=== PATIENT | female | born 1955 | race Caucasian/White ===

== ENCOUNTER 2016-08-19 13:41 | Inpatient (IN) | payer MEDICARE, OTHER ==
--- NOTE | ~2016-08-19 | DS ---
Discharge Summary [id number] [place]. [address] NAME: BROOKE NEUMANN : 51 STATUS : DIS IN PAT#: [id number] AGE: 60 ADM/REG DATE : 08/19/16 MR#: [id number] REPORT SERV DATE: 08/31/16 DICTATED BY: AILYN SILVA DATE: 08/30/16 REPORT STATUS : Draft TRANSCRIBED BY: FANI DATE: 08/30/16 Data Collection from hospitalization DISCHARGE DIAGNOSES: 1. Acute coronary syndrome, status post drug-eluting stent to the right coronary artery (proximal/mid/distal). 2. Type 2 diabetes. 3. Hypertension. 4. Dyslipidemia. 5. Chronic pain syndrome. 6. Gastroesophageal reflux disease. 7. Tobacco abuse. 8. Gastric polyps. CONSULTATIONS: None. PROCEDURES PERFORMED: 1. Cardiac catheterization and percutaneous coronary intervention on 08/22/2016. 2. CTA of the chest on 08/19/2016. MEDICATIONS: Tylenol 500-1000 mg twice a day as needed, Ventolin two puffs via inhaler three times a day as needed, aspirin 81 mg every morning, Lipitor 40 mg at bedtime, Plavix 75 mg every morning, Imdur 30 mg twice a day, Lopressor 12.5 mg twice a day, Habitrol one patch topically daily, and nitroglycerin lingual spray one to two sprays as needed for chest pain. She was instructed not to continue Zestoretic. CONDITION AT DISCHARGE: Stable. DISPOSITION: The patient was discharged home on a low-sodium, low-cholesterol, cardiac diet with activities as instructed. She would follow up with Dr. Jesús Escobar on 09/21/2016. HOSPITAL COURSE: This is a 60-year-old female who has known coronary heart disease and is status post extensive stenting of the right coronary artery and subsequent in-stent restenosis and cutting balloon angioplasty for acute stent thrombosis. The patient has had several weeks of severe substernal chest pain. She had undergone percutaneous coronary intervention to the right coronary artery several years ago. She later suffered in-stent restenosis and stent thrombosis of the right coronary artery stents in the year 2013. She has been treated with balloon angioplasty and cutting balloon angioplasty at that time. She was seen by Dr. Escobar on 08/17/2016. Apparently, she has had several weeks of severe chest pain. She had a stress test performed in April 2016, but apparently had no chest pain with exercise on the treadmill. Her stress EKG was normal. However, she did have an inferior defect noted, which was felt to be suggestive of ischemia. The study was limited by artifact. The patient originally elected not to pursue an invasive workup. She was treated medically, but apparently had worsening chest pain, which brought her back to Dr. Escobar's office on the of this month. The patient was going to undergo a cardiac catheterization the following Monday, however, she reports that her chest pain became quite severe at this time and she presented to the emergency room for further evaluation. The patient was having ongoing 5/10 chest pain. She said that the pain had been present for at Discharge [address] [id number] NAME: BROOKE NEUMANN : 51 STATUS : DIS IN PAT#: [id number] AGE: 60 ADM/REG DATE : 08/19/16 MR#: [id number] REPORT SERV DATE: 08/31/16 DICTATED BY: AILYN SILVA DATE: 08/30/16 REPORT STATUS : Draft TRANSCRIBED BY: FANI DATE: 08/30/16 least 12 if not 24 hours. She described it as a sharp stabbing sensation in the mid chest. She also described a "flipping" sensation associated with her chest pain. The pain was relieved somewhat with morphine. She was admitted to the hospital for further evaluation and treatment. Upon admission, CT scan of the chest, pulmonary embolism protocol was performed and it was negative for pulmonary embolism. No other acute thoracic process was reported. The patient was started on a heparin drip. Low-dose metoprolol was also started. She apparently was not taking a beta-jackelyn due to symptomatic hypotension. Metoprolol was going to be started. She would be given nitroglycerin paste for her chest pain. She did have considerable wheezing. There was some concern that her chest pain may be in part related to chronic obstructive pulmonary disease exacerbation, although she does not carry a diagnosis of chronic obstructive pulmonary disease. She was started on albuterol and Atrovent nebulizers. Other home medications including aspirin and Plavix were continued. The patient was strongly encouraged to stop smoking. The following day, the patient reports that her chest pain had resolved. Myocardial infarction had been ruled out. She did have leukocytosis and white count was 16.7. She denied any subjective fever or night sweats. Aspirin, heparin, metoprolol, and nitro paste were continued. Plans were going to be made for the patient to undergo cardiac catheterization in a couple of days. On 08/21/2016, she did complain of some neck pain that had more or less been continuous since admission. She did have diffuse wheezing, nebulizers were given. Nitro paste had been held for hypotension. Troponin I was less than 0.02. On 08/22/2016, she was taken to the [facility] where she underwent the above-mentioned procedure by Dr. Jesús Escobar. She tolerated this well, and there were no complications. Discharge instructions were given. Due to her improved and stable condition, she was discharged home with the above-stated instructions. Information collected by: Tammy Ortega I submit the above information as my discharge summary. TG/MODL Ailyn Silva MD / [id number] CC: MD SHOSHANA Lombardi VICKY L
--- NOTE | ~2016-08-19 | HP ---
History And Physical [id number] [facility] [place]. [address] NAME: BROOKE MORATAYA : 51 STATUS : ADM Citlali PAT#: [id number] AGE: 60 ADM/REG DATE : 08/19/16 MR#: [id number] REPORT SERV DATE: 08/20/16 DICTATED BY: AILYN SORIA DATE: 08/19/16 REPORT STATUS : Draft TRANSCRIBED BY: MODL DATE: 08/19/16 DATE OF ADMISSION: 08/19/2016 CARDIOLOGY ADMISSION HISTORY AND PHYSICAL IDENTIFYING DATA: The patient is a 60-year-old woman with known coronary heart disease status post extensive stenting of the right coronary artery and subsequent in-stent restenosis and cutting balloon angioplasty for acute stent thrombosis. CHIEF COMPLAINT: Several weeks of severe substernal chest pain. HISTORY OF PRESENT ILLNESS: Ms Morataya is a 60-year-old woman who is a patient of Dr. Escobar. The patient has a history of coronary artery disease with percutaneous coronary intervention to the right coronary artery several years ago. The patient later suffered in- stent restenosis and stent thrombosis of her right coronary artery stents in the year 2013. She was treated with balloon angioplasty and cutting balloon angioplasty at that time. The patient was last seen by Dr. Escobar on 08/17/2016. The patient apparently had been having several weeks of severe chest pain. A stress test was performed in April 2016. Interestingly, the patient apparently had no chest pain with exercise on the treadmill. Her stress EKG was normal, however, the patient did have an inferior defect noted, which was felt to be suggestive of ischemia. However, the study was limited by artifact. The patient originally elected not to pursue an invasive workup. She has been treated medically, but apparently had worsening chest pain that brought her back to Dr. Escobar's office on the first of this month. The patient was to have cardiac catheterization performed Monday. However, the patient reports that her chest pain became quite severe yesterday, and she presented to the emergency room today for further evaluation. At this time, the patient is having ongoing 5/10 chest pain. She reports that her chest pain has been present for at least 12 if not 24 hours. She describes the pain as a sharp "stabbing" sensation to the mid chest. It is not clearly associated with dyspnea or orthopnea. The patient also describes a "flipping" sensation associated with her chest pain. The pain has been relieved somewhat with morphine. The patient appears comfortable on my initial examination, and is in no acute distress. She is watching television. PAST MEDICAL HISTORY: 1. Coronary artery disease status post PCI as noted above. 2. Hypertension. 3. Dyslipidemia. 4. Chronic pain syndrome. 5. Type 2 diabetes. 6. Gastroesophageal reflux disease. 7. Tobacco abuse. 8. Gastric polyps. PAST SURGICAL HISTORY: Significant for percutaneous coronary intervention and polypectomy, otherwise noncontributory. History And Physical [address] [address] NAME: BROOKE MORATAYA : 51 STATUS : ADM Citlali PAT#: [id number] AGE: 60 ADM/REG DATE : 08/19/16 MR#: [id number] REPORT SERV DATE: 08/20/16 DICTATED BY: AILYN SORIA DATE: 08/19/16 REPORT STATUS : Draft TRANSCRIBED BY: FANI DATE: 08/19/16 FAMILY HISTORY: Negative for early coronary heart disease in the patient's first-degree relatives though her maternal grandmother suffered myocardial infarction at age 50. There is no family history of sudden cardiac . SOCIAL HISTORY: The patient has a long history of tobacco abuse. She continues to smoke about one quarter of pack to half a pack a day of cigarettes. She denies alcohol or drug use. ALLERGIES: THE PATIENT HAS AN EXTENSIVE LIST OF MEDICATION ALLERGIES, WHICH INCLUDE THE FOLLOWIN. PHENOTHIAZINE. 2. PENICILLIN. 3. SULFA DRUGS. 4. ESTROGENS. 5. PROGESTINS. 6. IODINE CONTRAST. 7. ESTROGEN. 8. CODEINE. 9. IBUPROFEN. 10.CLINDAMYCIN. 11.SULFAMETHOXAZOLE. 12.NITROFURANTOIN. 13.PHENERGAN. 14.LEVOFLOXACIN. 15.LATEX. HOME MEDICATIONS: 1. Acetaminophen 500 to 1000 mg p.o. twice daily as needed for pain. 2. Albuterol MDI 2 puffs 3 times daily as needed. 3. Aspirin 81 mg daily. 4. Plavix 75 mg daily. 5. Isosorbide mononitrate 30 mg p.o. twice daily. 6. Lisinopril/hydrochlorothiazide 20/25 mg daily. 7. Sublingual nitroglycerin spray as needed. REVIEW OF SYSTEMS: A complete 12-system review was performed. This is noncontributory except for the pertinent positives and negatives noted in the history of present illness above. PHYSICAL EXAMINATION: VITAL SIGNS: Temperature is 97.9 degrees Fahrenheit, blood pressure is 113/74 mmHg, heart rate is 82 beats per minute and regular, respirations 13, oxygen saturation is 95% on room air. GENERAL: Constitutional: The patient is a well-nourished, well-developed older white woman who is in no acute distress, though she continues to complain of 5/10 chest pain. EYES: PERRL, EOMI, clear conjunctiva. History And Physical [address] [address] NAME: BROOKE MORATAYA : 51 STATUS : ADM Citlali PAT#: [id number] AGE: 60 ADM/REG DATE : 08/19/16 MR#: [id number] REPORT SERV DATE: 08/20/16 DICTATED BY: AILYN SORIA DATE: 08/19/16 REPORT STATUS : Draft TRANSCRIBED BY: FANI DATE: 08/19/16 HEAD/MNT: NCAT with moist mucous membranes and grossly normal hard and soft palate. NECK: Supple with no obvious thyromegaly or lymphadenopathy CARDIOVASCULAR: There is a regular rhythm with a normal S1 and a physiologically split second heart sound. No significant murmurs, rubs, or gallops are noted. The jugular venous pressure is normal. PULMONARY: There is diffuse expiratory wheezing heard bilaterally with prolonged expiratory phase and globally decreased air movement. There is no dullness to percussion. ABDOMINAL: Soft, non-tender, non-distended with no hepatosplenomegaly noted. EXTREMITIES: No clubbing, cyanosis or edema. MUSCULOSKELETAL: Grossly normal strength and range of motion in all extremities INTEGUMENTARY: Skin appears intact with no bruises, wounds or active lesions noted NEURO/PSYC: Alert and oriented x3, with no dysarthria, facial droop or lateralizing weakness noted. 12-lead EKG: The 12-lead ECG shows normal sinus rhythm with very subtle nonspecific ST/T- wave abnormalities and nonsignificant inferior T-waves. The ECG is unchanged from a previous tracing from February 2016. Chest x-ray: The patient's chest x-ray shows no acute cardiopulmonary process. CT scan of the chest, pulmonary embolism protocol: This is negative for pulmonary embolism with no other acute thoracic process reported. B-type natriuretic peptide: This is 6.9. Chemistry profile shows a sodium of 140, potassium 4.5, chloride is 106, CO2 is 22, BUN is 32, creatinine is 1.44, glucose is 91, magnesium 2.2. Troponin I is less than 0.02. White blood cell count is 9.6, hemoglobin 13.8, hematocrit 39, platelets 604. INR is 1.0. PTT is 34. ASSESSMENT AND PLAN: 1. Chest pain syndrome: The patient's chest pain is somewhat atypical: She apparently had no exacerbation of her chest pain during her fairly recent treadmill stress test. In addition, the patient has had almost 12 hours of severe chest pain with a normal EKG and no significant elevation of her troponin I. The patient does have a history of chronic pain syndrome and GI issues of uncertain etiology. At this time, I feel the risks of urgent cardiac catheterization outweighed the benefits, particularly given the patient's elevated serum creatinine and recent contrast exposure from her CT pulmonary embolism protocol. The patient will be admitted to the Clinical Decision Unit. She will be started on a heparin drip. I will start the patient on a low-dose of metoprolol. She apparently is not taking a beta-jackelyn due to symptomatic hypotension. We will start metoprolol tartrate 12.5 mg twice daily if tolerated. The patient will be given nitroglycerin paste for her chest pain, will use morphine as needed. The patient has considerable wheezing, and I am concerned that her chest pain may be in part due to a chronic obstructive pulmonary disease exacerbation, though the patient does not carry a diagnosis of chronic obstructive pulmonary disease. She was History And Physical [address] [address] NAME: BROOKE MORATAYA : 51 STATUS : ADM Citlali PAT#: [id number] AGE: 60 ADM/REG DATE : 08/19/16 MR#: [id number] REPORT SERV DATE: 08/20/16 DICTATED BY: AILYN SORIA DATE: 08/19/16 REPORT STATUS : Draft TRANSCRIBED BY: MODL DATE: 08/19/16 started on albuterol and Atrovent nebulizers. We will continue other home medications including aspirin and Plavix. We will consider coronary angiography on Monday depending on the patient's clinical course. 2. Tobacco abuse: The patient will be strongly counseled to stop smoking. JOSE/FANI Ailyn Soria MD / [id number] CC: Amanda Garrison, MSN, RADAR SCIENTIST-BC MICHAELLE ANNA
[~2016-08-19 13:41] MED LIST: ASAB PO; ASAEC PO; CEFT5 PO; CIPRODEX OT; COREG3 PO; CRESTOR20 MG PO; CRESTOR40 MG PO; CRESTOR5 MG PO; DIPHENCR TOP; EFFIENT10 PO; FISH-EPA1000 MG PO; HALF81 PO; HCTZ25B PO; HYDROCHLOROT25 MG PO; IMDUR30 PO; IMDUR60 PO; LEVAQUIN750 MG PO; LIPITOR20 PO; LIPITOR80 MG PO; MULTIPLE VIT PO; NEUR600 PO; NITROSPRAY SL; NORCO1 TA1 PO; NORCO1 TA2 PO; PLAVIX PO; PRIN10 PO; PRIN20 PO; TOPXL100 PO; TRILIPIX135 MG PO; VENTOLIN HFA INH; X25 PO; ZANAFLEX 4 MG TA4 MG PO; ZESTORETIC1 TA1 PO; ZESTRIL30 MG PO
[2016-08-19 14:10] LABS: BASOPHILS 0.7 %; BASOPHILS ABSOLUTE 0.07 10/3/uL (0.0-0.16); EOSINOPHILS 1.8 %; EOSINOPHILS ABSOLUTE 0.17 10/3/uL (0.0-0.53); ER CBC TAT 0 Hrs 08 MinsNP; HEMATOCRIT 38.9 % (36.0-48.0); HEMOGLOBIN 13.8 g/dL (12.0-16.0); IMMATURE GRANULOCYTES 0.2 %; IMMATURE GRANULOCYTES ABSOLUTE 0.02 10/3/uL (0.0-0.11); LYMPHOCYTES 39.4 %; LYMPHOCYTES ABSOLUTE 3.78 10/3/uL (0.67-4.30); MANUAL DIFF NO %; MEAN CORPUS HGB CONC 35.5 g/dL (32.0-36.0); MEAN CORPUSCULAR HEMOGLOB 33.1 pg (26.0-34.0); MEAN CORPUSCULAR VOLUME 93.3 fL (80-100); MONOCYTES 7.7 %; MONOCYTES ABSOLUTE 0.74 10/3/uL (0.21-1.20); NEUTROPHILS 50.2 %; NEUTROPHILS ABSOLUTE 4.82 10/3/uL (2.02-8.40); PLATELET COUNT 604 10/3/uL (150-400); RBC DISTRIBUTION WIDTH 13.4 % (12.0-16.0); RED CELL COUNT 4.17 10/6/uL (4.0-5.6); WHITE BLOOD CELLS 9.6 10/3/uL (4.5-10.5)
[2016-08-19 14:24] LABS: CALCIUM, SERUM 9.1 MG/DL (8.5-10.4); CHEST PAIN PROFILE TAT 0 Hrs 22 Mins; CHLORIDE, SERUM 106 MMOL/L (96-112); CO2 (CARBON DIOXIDE) 22 MMOL/L (24-34); CREATININE 1.44 MG/DL (0.55-1.02); GFR AFRICAN AMERICAN 45 ML/MIN (>=60); GFR NON AFRICAN AMERICAN 39 ML/MIN (>=60); GLUCOSE, SERUM 91 MG/DL (60-99); POTASSIUM, SERUM 4.5 MMOL/L (3.5-5.3); SODIUM, SERUM 140 MMOL/L (135-148); TROPONIN I <0.02 NG/ML (<0.05)
[2016-08-19 14:25] LABS: BUN (BLOOD UREA NITROGEN) 32 MG/DL (6-23)
[2016-08-19 14:32] LABS: PARTIAL THROMBO TIME 33.7 SEC (22.5-37.2); PROTIME (NOT ORD) 13.5 SEC (12.0-14.5)
[2016-08-19] MEDS ORDERED: VENTOLIN HFA INH (19:26)
[2016-08-19] MEDS ORDERED: NITROLINGUAL SPRAY PO (19:26)
[2016-08-19] MEDS ORDERED: ZESTORETIC1 TA1 PO (19:27)
[2016-08-19] MEDS ORDERED: PLAVIX PO (19:27)
[2016-08-19] MEDS ORDERED: IMDUR30 PO (19:27)
[2016-08-19] MEDS ORDERED: ASAB PO (19:28)
[2016-08-19] MEDS ORDERED: ACET500CAP PO (19:29)
[2016-08-19 23:22] LABS: TROPONIN I <0.02 NG/ML (<0.05)
[2016-08-20 04:18] LABS: BASOPHILS 0.3 %; BASOPHILS ABSOLUTE 0.05 10/3/uL (0.0-0.16); EOSINOPHILS 2.7 %; EOSINOPHILS ABSOLUTE 0.45 10/3/uL (0.0-0.53); HEMATOCRIT 37.9 % (36.0-48.0); HEMOGLOBIN 12.9 g/dL (12.0-16.0); IMMATURE GRANULOCYTES 0.3 %; IMMATURE GRANULOCYTES ABSOLUTE 0.05 10/3/uL (0.0-0.11); LYMPHOCYTES 9.7 %; LYMPHOCYTES ABSOLUTE 1.62 10/3/uL (0.67-4.30); MEAN CORPUSCULAR HEMOGLOB 32.3 pg (26.0-34.0); MONOCYTES 6.2 %; MONOCYTES ABSOLUTE 1.04 10/3/uL (0.21-1.20); NEUTROPHILS 80.8 %; NEUTROPHILS ABSOLUTE 13.52 10/3/uL (2.02-8.40); PLATELET COUNT 581 10/3/uL (150-400); RBC DISTRIBUTION WIDTH 13.5 % (12.0-16.0); RED CELL COUNT 3.99 10/6/uL (4.0-5.6)
[2016-08-20 04:20] LABS: MANUAL DIFF NO %; WHITE BLOOD CELLS 16.7 10/3/uL (4.5-10.5)
[2016-08-20 04:35] LABS: BUN (BLOOD UREA NITROGEN) 35 MG/DL (6-23); CALCIUM, SERUM 8.4 MG/DL (8.5-10.4); CHLORIDE, SERUM 108 MMOL/L (96-112); CO2 (CARBON DIOXIDE) 25 MMOL/L (24-34); CREATININE 1.39 MG/DL (0.55-1.02); GFR AFRICAN AMERICAN 47 ML/MIN (>=60); GFR NON AFRICAN AMERICAN 41 ML/MIN (>=60); POTASSIUM, SERUM 4.3 MMOL/L (3.5-5.3); SODIUM, SERUM 141 MMOL/L (135-148); TROPONIN I <0.02 NG/ML (<0.05)
[2016-08-20 04:36] LABS: GLUCOSE, SERUM 116 MG/DL (60-99)
[2016-08-20 04:39] LABS: CK-MB 1.5 NG/ML; CPK 93 U/L (0-200)
[2016-08-20 15:34] LABS: ASCORBIC ACID (UR NOT ORDER) NEG (NEG); BILIRUBIN, URINE NEGATIVE (NEG); KETONE, URINE NEGATIVE (NEG); LEUKOCYTE ESTERASE(NOT OR TRACE (NEG); WBC (NOT ORDERED) (RFLEX) 3 (0-5)
[2016-08-21 00:41] LABS: HEMOGLOBIN 11.4 g/dL (12.0-16.0); MEAN CORPUS HGB CONC 34.2 g/dL (32.0-36.0); MEAN CORPUSCULAR HEMOGLOB 32.6 pg (26.0-34.0); MEAN CORPUSCULAR VOLUME 95.1 fL (80-100); MEAN PLATELET VOLUME 8.8 fL (9.2-13.0); PLATELET COUNT 502 10/3/uL (150-400); RBC DISTRIBUTION WIDTH 13.2 % (12.0-16.0); WHITE BLOOD CELLS 12.5 10/3/uL (4.5-10.5)
[2016-08-21 00:42] LABS: HEMATOCRIT 33.3 % (36.0-48.0); MANUAL DIFF YES %
[2016-08-21 00:53] LABS: CALCIUM, SERUM 8.4 MG/DL (8.5-10.4); CHLORIDE, SERUM 105 MMOL/L (96-112); CO2 (CARBON DIOXIDE) 21 MMOL/L (24-34); CREATININE 1.53 MG/DL (0.55-1.02); GFR AFRICAN AMERICAN 42 ML/MIN (>=60); GFR NON AFRICAN AMERICAN 36 ML/MIN (>=60); GLUCOSE, SERUM 93 MG/DL (60-99); POTASSIUM, SERUM 4.3 MMOL/L (3.5-5.3); SODIUM, SERUM 138 MMOL/L (135-148)
[2016-08-21 00:54] LABS: BUN (BLOOD UREA NITROGEN) 45 MG/DL (6-23); PARTIAL THROMBO TIME 78.8 SEC (22.5-37.2)
[2016-08-21 01:50] LABS: BASOPHILS 1 %; BASOPHILS ABSOLUTE (CALC) 0.13 10/3/uL (0.0-0.16); EOSINOPHILS 4 %; LYMPHOCYTES 37 %; LYMPHOCYTES ABSOLUTE (CALC) 4.63 10/3/uL (0.67-4.30); MONOCYTES 11 %; MONOCYTES ABSOLUTE (CALC) 1.38 10/3/uL (0.21-1.20); NEUTROPHILS ABSOLUTE (CALC) 5.88 10/3/uL (2.02-8.40); PLATELET ESTIMATE SLT INC (ADEQUATE); RBC MORPHOLOGY NORM (NORMAL); SEGMENTED NEUTROPHIL (0) 47 %; TOTAL NUCLEATED CELLS 100
[2016-08-22 06:20] LABS: BASOPHILS 0.5 %; BASOPHILS ABSOLUTE 0.06 10/3/uL (0.0-0.16); EOSINOPHILS 7.8 %; EOSINOPHILS ABSOLUTE 0.92 10/3/uL (0.0-0.53); HEMATOCRIT 34.3 % (36.0-48.0); HEMOGLOBIN 11.9 g/dL (12.0-16.0); IMMATURE GRANULOCYTES 0.3 %; IMMATURE GRANULOCYTES ABSOLUTE 0.03 10/3/uL (0.0-0.11); LYMPHOCYTES 36.8 %; LYMPHOCYTES ABSOLUTE 4.33 10/3/uL (0.67-4.30); MEAN CORPUS HGB CONC 34.7 g/dL (32.0-36.0); MEAN CORPUSCULAR HEMOGLOB 32.2 pg (26.0-34.0); MEAN PLATELET VOLUME 8.9 fL (9.2-13.0); MONOCYTES 9.1 %; MONOCYTES ABSOLUTE 1.07 10/3/uL (0.21-1.20); NEUTROPHILS 45.5 %; NEUTROPHILS ABSOLUTE 5.37 10/3/uL (2.02-8.40); PLATELET COUNT 506 10/3/uL (150-400); RBC DISTRIBUTION WIDTH 12.9 % (12.0-16.0); RED CELL COUNT 3.69 10/6/uL (4.0-5.6); WHITE BLOOD CELLS 11.8 10/3/uL (4.5-10.5)
[2016-08-22 06:21] LABS: MANUAL DIFF NO %
[2016-08-22 06:30] LABS: PROTIME (NOT ORD) 13.2 SEC (12.0-14.5)
[2016-08-22 06:38] LABS: BUN (BLOOD UREA NITROGEN) 42 MG/DL (6-23); CALCIUM, SERUM 8.8 MG/DL (8.5-10.4); CHLORIDE, SERUM 105 MMOL/L (96-112); CHOL/HDL RATIO(NOT ORDER) 4.8 (0-5); CHOLESTEROL 228 MG/DL (< 200); CO2 (CARBON DIOXIDE) 22 MMOL/L (24-34); CREATININE 1.28 MG/DL (0.55-1.02); GFR AFRICAN AMERICAN 52 ML/MIN (>=60); GFR NON AFRICAN AMERICAN 45 ML/MIN (>=60); GLUCOSE, SERUM 99 MG/DL (60-99); HDL CHOLESTEROL 48 MG/DL (> 49); LDL CHOLESTEROL 154 MG/DL (< 130); NON-HDL CHOLESTEROL 180 MG/DL (< 160); POTASSIUM, SERUM 4.1 MMOL/L (3.5-5.3); SODIUM, SERUM 139 MMOL/L (135-148); TRIGLYCERIDE 131 MG/DL (< 150)
[2016-08-22] MEDS ORDERED: LOP25 PO (16:18)
[2016-08-22] MEDS ORDERED: LIPITOR40 PO (16:18)
[2016-08-22] MEDS ORDERED: HABIT14 TOP (17:10)
== END 2016-08-22 17:58 | disposition home or self-care (01) | DRG 247 ==
LOC: ER 13:41 → CDU1 19:33 → CDU2 20:00 → 7NO 08-20 17:01 → SSU1 08-22 11:34
PROVIDERS: Clinical Nurse Specialist; Emergency Medicine; Internal Medicine Cardiovascular Disease
PROC: 027134Z Dilation of Coronary Artery, Two Arteries with Drug-eluting Intraluminal Device, Percutaneous Approach (ICD-10-PCS; principal; 2016-08-22)
PROC: 02C03ZZ Extirpation of Matter from Coronary Artery, One Artery, Percutaneous Approach (ICD-10-PCS; 2016-08-22)
PROC: 4A023N7 Measurement of Cardiac Sampling and Pressure, Left Heart, Percutaneous Approach (ICD-10-PCS; 2016-08-22)
PROC: B2151ZZ Fluoroscopy of Left Heart using Low Osmolar Contrast (ICD-10-PCS; 2016-08-22)
PROC: B2111ZZ Fluoroscopy of Multiple Coronary Arteries using Low Osmolar Contrast (ICD-10-PCS; 2016-08-22)
DX: I25.110 Atherosclerotic heart disease of native coronary artery with unstable angina pectoris (principal); N17.9 Acute kidney failure, unspecified; I50.9 Heart failure, unspecified; I13.0 Hypertensive heart and chronic kidney disease with heart failure and stage 1 through stage 4 chronic kidney disease, or unspecified chronic kidney disease; F17.210 Nicotine dependence, cigarettes, uncomplicated; E78.5 Hyperlipidemia, unspecified; G89.4 Chronic pain syndrome; E11.9 Type 2 diabetes mellitus without complications; K21.9 Gastro-esophageal reflux disease without esophagitis; N18.9 Chronic kidney disease, unspecified; J44.9 Chronic obstructive pulmonary disease, unspecified; I25.2 Old myocardial infarction; Z88.0 Allergy status to penicillin; Z88.2 Allergy status to sulfonamides; Z95.5 Presence of coronary angioplasty implant and graft; Z82.49 Family history of ischemic heart disease and other diseases of the circulatory system; Z88.5 Allergy status to narcotic agent; Z88.8 Allergy status to other drugs, medicaments and biological substances; Z88.6 Allergy status to analgesic agent; Z91.041 Radiographic dye allergy status; Z91.040 Latex allergy status
CPT/HCPCS: 71020; 71275; 80048; 80061; 81001; 82270; 82550; 82553; 82962; 83735; 83880; 84484; 85025; 85610; 85730; 87040; 93005; 93458; 93924; 94640; 96374; 96375; 99152; 99153; 99285; A9270-GY; C1725; C1769; C1874; C1887; C1894; C9600; G0463; J0583; J1200; J2250; J2405; J2930; J3010; Q9967